=== PATIENT | male | born 1970 | race African-American/Black ===

== ENCOUNTER 2019-04-15 17:55 | Inpatient (IN) ==
[2019-04-15] MEDS ORDERED: ONDANSETRON 4 MG/2 ML VIAL IV STA ×2 (18:39→20:10)
[2019-04-15] MEDS ORDERED: FUROSEMIDE 100 MG/10 ML VIAL IV STA (18:39)
[2019-04-15] MEDS ORDERED: hydrALAZINE 20 MG/1 ML VIAL IV STA ×2 (18:39→20:23)
[2019-04-15] MEDS ORDERED: MORPHINE 4 MG/1 ML VIAL IV STA (18:39)
[2019-04-15 18:53] LABS: Basophils # 0.1 10*3/uL (0.0-0.2); Basophils % 0.3 % (0.0-0.8); Eosinophils # 0.1 10*3/uL (0.0-0.87); Eosinophils % 0.5 % (0.00-10.9); Hemoglobin 9.6 GM/DL (14.0-18.0); Immature Granulocytes % 0.6 %; Immature Granulocytes Absolute 0.11 #; Lymphocytes # 1.3 10*3/uL (1.4-4.0); Lymphocytes % 7.4 % (21.2-54.2); Mean Corpuscular Volume 89.1 FL (87-102); Mean Platelet Volume 11.5 FL (9.6-12.0); Monocytes % 3.4 % (1.7-12.7); Neutrophils % 87.8 % (38.7-73.9); Platelet Count 150 T/CUMM (130-400); Red Blood Count 3.48 MC/CUMM (3.8-5.5); Red Cell Distribution Width 15.8 % (9.3-17.3); White Blood Count 17.6 T/CUMM (4-12)
[2019-04-15 19:00] LABS: PT Patient Result 10.6 SECS (9.6-12.2)
[2019-04-15 19:13] LABS: Alanine Aminotransferase 21 U/L (16-61); Albumin 2.7 G/DL (3.4-5.0); Alkaline Phosphatase 99 U/L (45-117); Aspartate Amino Transferase 25 U/L (0-37); Bilirubin,Total < 0.39 MG/DL (0.2-1.0); Blood Urea Nitrogen 25 MG/DL (7-18); CKMB % 0.9 %; Calcium 8.9 MG/DL (8.5-10.1); Glucose 104 MG/DL (74-106); Osmolality,Calculated 297.3 MOS/KG (273-304); Total Protein 7.9 G/DL (6.4-8.3); Troponin I 0.034 NG/ML (0.00-0.045)
[2019-04-15 19:51] LABS: Apearance,Urine CLEAR (Clear); Bilirubin,Urine Negative (Negative); Blood, Urine Negative (Negative); Glucose,Urine (UA) 50 mg/dL (Negative); Hyaline Casts,Urine 1 /LPF (0-3); Ketones,Urine Negative (Negative); Mucus,Urine Occasional /LPF (Occasional); Nitrite,Urine Negative (Negative); Protein,Urine >=500 MG/DL; RBC,Urine 2 /HPF (0-4); Urine Color Straw (Yellow); Urine Specific Gravity 1.009 (1.001-1.035); Urine Urobilinogen < 2.0 EU/DL (0.2-1.0); WBC,Urine 2 /HPF (0-6)
[2019-04-15 19:55] LABS: Barbiturates Screen,Urine Negative (Negative); Benzodiazepines Screen,Urine Negative (Negative); Cannabinoid Screen,Urine Negative (Negative); Opiate Screen,Urine Negative (Negative); Phencyclidine Screen,Urine Negative (Negative)
[2019-04-15] MEDS ORDERED: ACETAMINOPHEN 500 MG TABLET ONE (19:57)
[2019-04-15] MEDS ORDERED: ACETAMINOPHEN 500 MG TABLET PO STA (20:10)
[2019-04-15] MEDS ORDERED: METOCLOPRAMIDE 10 MG/2 ML VIAL IV STA (20:24)
[2019-04-15] MEDS ORDERED: cefTRIAXone 1,000 MG in SODIUM CHLORIDE 0.9% 100 ML IV STA (20:26)
[2019-04-15] MEDS ORDERED: PROMETHAZINE 25 MG/1 ML VIAL ONE (20:53)
[2019-04-15] MEDS ORDERED: PROMETHAZINE 25 MG/1 ML VIAL IM STA (20:53)
[2019-04-15 21:38] LABS: Platelet Estimate Adequate
[2019-04-15] MEDS ORDERED: PROMETHAZINE 25 MG TABLET PO PRN (22:16)
[2019-04-15] MEDS ORDERED: GLUCAGON 1 MG VIAL IM PRN (22:16)
[2019-04-15] MEDS ORDERED: hydrALAZINE 20 MG/1 ML VIAL IV PRN (22:16)
[2019-04-15] MEDS ORDERED: SODIUM CHLORIDE 0.9% 1,000 ML IV SCH (22:16)
[2019-04-15] MEDS ORDERED: DEXTROSE 50% 25 GM/50 ML VIAL IV PRN (22:16)
[2019-04-15] MEDS ORDERED: MORPHINE 4 MG/1 ML VIAL IV PRN (22:16)
[2019-04-15] MEDS ORDERED: ACETAMINOPHEN 325 MG TABLET PO PRN (22:16)
[2019-04-15] MEDS: ONDANSETRON 4 MG/2 ML VIAL IV PRN (22:42)
[2019-04-15] MEDS: FUROSEMIDE 20 MG TABLET PO SCH (22:52)
[2019-04-15] MEDS: cloNIDine 0.1 MG TABLET PO SCH (22:52)
[2019-04-15] MEDS: FERROUS SULFATE 325 MG TABLET PO SCH (22:52)
[2019-04-15] MEDS: DOCUSATE SODIUM 100 MG CAPSULE PO SCH (22:52)
[2019-04-15] MEDS: OFLOXACIN 0.3% OPH SOLN 5 ML BOTTLE RIGHT EYE SCH (22:53)
[2019-04-15] MEDS: DIFLUPREDNATE 0.05% OPH EMUL 5 ML BOTTLE RIGHT EYE SCH (22:53)
[2019-04-16] MEDS: INSULIN REGULAR 100 UNIT/ML SUBCUT SCH ×4 (00:04→17:13)
[2019-04-16] MEDS ORDERED: METOPROLOL TARTRATE 5 MG/5 ML VIAL IV ONE (02:45)
[2019-04-16] MEDS ORDERED: METOPROLOL TARTRATE 5 MG/5 ML VIAL IV PRN (02:45)
[2019-04-16] MEDS ORDERED: cloNIDine 0.2 MG/24 HR PATCH TRANSDERM PRN (02:46)
[2019-04-16 05:22] LABS: Basophils % 0.2 % (0.0-0.8); Hematocrit 30.1 VOL% (42.0-52.0); Hemoglobin 9.2 GM/DL (14.0-18.0); Immature Granulocytes % 0.5 %; Immature Granulocytes Absolute 0.09 #; Lymphocytes # 1.4 10*3/uL (1.4-4.0); Lymphocytes % 8.1 % (21.2-54.2); Mean Corpuscular HGB Conc 30.6 GM/DL (32-36); Mean Corpuscular Volume 89.1 FL (87-102); Mean Platelet Volume 11.3 FL (9.6-12.0); Monocytes % 4.9 % (1.7-12.7); Neutrophils % 86.3 % (38.7-73.9); Platelet Count 269 T/CUMM (130-400); Red Blood Count 3.38 MC/CUMM (3.8-5.5); Red Cell Distribution Width 15.9 % (9.3-17.3); White Blood Count 16.7 T/CUMM (4-12)
[2019-04-16 05:54] LABS: Albumin 2.3 G/DL (3.4-5.0); Bilirubin,Total 0.5 MG/DL (0.2-1.0); Calcium 8.8 MG/DL (8.5-10.1); Osmolality,Calculated 304.9 MOS/KG (273-304)
[2019-04-16] MEDS: FUROSEMIDE 20 MG TABLET PO SCH ×2 (08:22→21:47)
[2019-04-16] MEDS: DOCUSATE SODIUM 100 MG CAPSULE PO SCH ×2 (08:23→21:47)
[2019-04-16] MEDS: INSULIN GLARGINE 100 UNIT/ML SUBCUT SCH (08:23)
[2019-04-16] MEDS: OFLOXACIN 0.3% OPH SOLN 5 ML BOTTLE RIGHT EYE SCH ×2 (08:23→21:48)
[2019-04-16] MEDS: DIFLUPREDNATE 0.05% OPH EMUL 5 ML BOTTLE RIGHT EYE SCH ×2 (08:23→21:48)
[2019-04-16] MEDS: CHOLECALCIFEROL 5,000 UNIT TABLET PO SCH (08:23)
[2019-04-16] MEDS: PANTOPRAZOLE 40 MG TABLET PO SCH (08:23)
[2019-04-16] MEDS: FERROUS SULFATE 325 MG TABLET PO SCH ×2 (08:23→21:48)
[2019-04-16] MEDS ORDERED: INSULIN DETEMIR 100 UNIT/ML SUBCUT SCH (09:00)
[2019-04-16] MEDS ORDERED: ENOXAPARIN 40 MG/0.4 ML SYRINGE SUBCUT SCH (09:00)
[2019-04-16] MEDS: SODIUM CHLOR 0.45% KCL 20 MEQ 20 MEQ/1,000 ML BAG IV SCH ×2 (10:05→21:47)
[2019-04-16] MEDS: CARVEDILOL 6.25 MG TABLET PO SCH ×2 (11:30→21:47)
[2019-04-16] MEDS: cefTRIAXone 1,000 MG in SYRINGE 1 EACH IV SCH (21:47)
[2019-04-16] MEDS: cloNIDine 0.1 MG TABLET PO SCH (21:47)
[2019-04-17] MEDS: INSULIN REGULAR 100 UNIT/ML SUBCUT SCH ×5 (00:21→23:52)
[2019-04-17 05:18] LABS: Basophils % 0.2 % (0.0-0.8); Eosinophils # 0.3 10*3/uL (0.0-0.87); Eosinophils % 2.5 % (0.00-10.9); Hematocrit 26.8 VOL% (42.0-52.0); Hemoglobin 8.2 GM/DL (14.0-18.0); Immature Granulocytes % 0.6 %; Immature Granulocytes Absolute 0.08 #; Lymphocytes # 2.4 10*3/uL (1.4-4.0); Lymphocytes % 18.7 % (21.2-54.2); Mean Corpuscular HGB Conc 30.6 GM/DL (32-36); Mean Corpuscular Volume 89.6 FL (87-102); Mean Platelet Volume 11.1 FL (9.6-12.0); Monocytes % 7.2 % (1.7-12.7); Neutrophils % 70.8 % (38.7-73.9); Platelet Count 235 T/CUMM (130-400); Red Blood Count 2.99 MC/CUMM (3.8-5.5); Red Cell Distribution Width 15.9 % (9.3-17.3)
[2019-04-17] MEDS: SODIUM CHLOR 0.45% KCL 20 MEQ 20 MEQ/1,000 ML BAG IV SCH ×2 (05:36→17:15)
[2019-04-17 05:44] LABS: Calcium 7.7 MG/DL (8.5-10.1); Osmolality,Calculated 291.8 MOS/KG (273-304)
[2019-04-17 06:02] LABS: Alanine Aminotransferase 16 U/L (16-61); Albumin 2.1 G/DL (3.4-5.0); Alkaline Phosphatase 74 U/L (45-117); Aspartate Amino Transferase 19 U/L (0-37); Bilirubin,Total < 0.39 MG/DL (0.2-1.0); Blood Urea Nitrogen 29 MG/DL (7-18); Calcium 7.7 MG/DL (8.5-10.1); Glucose 103 MG/DL (74-106); HDL Cholesterol 37 MG/DL (40-60); Total Protein 5.9 G/DL (6.4-8.3); Triglycerides 91 MG/DL (2-150); VLDL CHOLESTEROL 18.2 MG/DL
[2019-04-17 06:03] LABS: Alanine Aminotransferase 17 U/L (16-61); Alkaline Phosphatase 76 U/L (45-117); Aspartate Amino Transferase 18 U/L (0-37); Bilirubin,Direct < 0.100 MG/DL (0.0-0.20); Bilirubin,Indirect 0.3 MG/DL (0.0-1.0); Bilirubin,Total < 0.39 MG/DL (0.2-1.0)
[2019-04-17 06:33] LABS: Sedimentation Rate-Westergren 115 MM/HR (0-15)
[2019-04-17] MEDS ORDERED: ENOXAPARIN 30 MG/0.3 ML SYRINGE SUBCUT SCH (09:00)
[2019-04-17] MEDS: FUROSEMIDE 20 MG TABLET PO SCH (09:39)
[2019-04-17] MEDS: FERROUS SULFATE 325 MG TABLET PO SCH ×2 (09:40→21:34)
[2019-04-17] MEDS: DOCUSATE SODIUM 100 MG CAPSULE PO SCH ×2 (09:40→21:35)
[2019-04-17] MEDS: ASPIRIN EC 81 MG TABLET PO SCH (09:40)
[2019-04-17] MEDS: CHOLECALCIFEROL 5,000 UNIT TABLET PO SCH (09:40)
[2019-04-17] MEDS: CARVEDILOL 6.25 MG TABLET PO SCH (09:40)
[2019-04-17] MEDS: PANTOPRAZOLE 40 MG TABLET PO SCH (09:40)
[2019-04-17] MEDS: INSULIN GLARGINE 100 UNIT/ML SUBCUT SCH (09:47)
[2019-04-17] MEDS: OFLOXACIN 0.3% OPH SOLN 5 ML BOTTLE RIGHT EYE SCH ×2 (09:48→21:35)
[2019-04-17] MEDS: DIFLUPREDNATE 0.05% OPH EMUL 5 ML BOTTLE RIGHT EYE SCH ×2 (09:48→21:36)
[2019-04-17] MEDS ORDERED: ATORVASTATIN 20 MG TABLET PO SCH (21:00)
[2019-04-17] MEDS: cefTRIAXone 1,000 MG in SYRINGE 1 EACH IV SCH (21:33)
[2019-04-17] MEDS: CARVEDILOL 12.5 MG TABLET PO SCH (21:40)
[2019-04-18] MEDS: SODIUM CHLOR 0.45% KCL 20 MEQ 20 MEQ/1,000 ML BAG IV SCH ×2 (02:00→12:10)
[2019-04-18 05:01] LABS: Basophils % 0.3 % (0.0-0.8); Eosinophils # 0.4 10*3/uL (0.0-0.87); Eosinophils % 3.7 % (0.00-10.9); Hematocrit 26.8 VOL% (42.0-52.0); Hemoglobin 8.1 GM/DL (14.0-18.0); Immature Granulocytes % 0.4 %; Immature Granulocytes Absolute 0.05 #; Lymphocytes # 2.1 10*3/uL (1.4-4.0); Lymphocytes % 18.3 % (21.2-54.2); Mean Corpuscular HGB Conc 30.2 GM/DL (32-36); Mean Corpuscular Volume 89.6 FL (87-102); Mean Platelet Volume 10.8 FL (9.6-12.0); Monocytes % 7.4 % (1.7-12.7); Neutrophils % 69.9 % (38.7-73.9); Platelet Count 223 T/CUMM (130-400); Red Blood Count 2.99 MC/CUMM (3.8-5.5); Red Cell Distribution Width 15.9 % (9.3-17.3); White Blood Count 11.5 T/CUMM (4-12)
[2019-04-18 05:20] LABS: Calcium 7.9 MG/DL (8.5-10.1); Osmolality,Calculated 295.4 MOS/KG (273-304)
[2019-04-18] MEDS: INSULIN REGULAR 100 UNIT/ML SUBCUT SCH ×2 (05:36→12:10)
[2019-04-18 05:39] LABS: Ferritin 252.7 ng/ml (26-388)
[2019-04-18 08:16] VITALS: BP 145/65
[2019-04-18] MEDS: DOCUSATE SODIUM 100 MG CAPSULE PO SCH (08:46)
[2019-04-18] MEDS: CARVEDILOL 12.5 MG TABLET PO SCH (08:46)
[2019-04-18] MEDS: ASPIRIN EC 81 MG TABLET PO SCH (08:46)
[2019-04-18] MEDS: FERROUS SULFATE 325 MG TABLET PO SCH (08:46)
[2019-04-18] MEDS: PANTOPRAZOLE 40 MG TABLET PO SCH (08:46)
[2019-04-18] MEDS: INSULIN GLARGINE 100 UNIT/ML SUBCUT SCH (08:47)
[2019-04-18] MEDS: OFLOXACIN 0.3% OPH SOLN 5 ML BOTTLE RIGHT EYE SCH (08:48)
[2019-04-18] MEDS: DIFLUPREDNATE 0.05% OPH EMUL 5 ML BOTTLE RIGHT EYE SCH (08:48)
[2019-04-18] MEDS ORDERED: ENOXAPARIN 40 MG/0.4 ML SYRINGE SUBCUT SCH (09:00)
[2019-04-18] MEDS: ONDANSETRON 4 MG/2 ML VIAL IV PRN (09:57)
[2019-04-18] MEDS ORDERED: INFLUENZA VIRUS VACCINE 0.5 ML SYRINGE IM ONE (11:41)
== END 2019-04-18 14:28 | disposition home or self-care (01) | DRG 304 ==
LOC: N.ED 17:55 → N.EDINP 20:30 → N.TELEN 21:09
PROVIDERS: ADMIT Family Medicine; ATTEND Family Medicine